=== PATIENT | female | born 1960 | race Caucasian/White ===

== ENCOUNTER → 2017-08-14 | Outpatient (CLI) | payer OTHER | LOC: BMCIMAGING 08:25 | PROVIDERS: ATTEND Internal Medicine | DX: Z12.31 Encounter for screening mammogram for malignant neoplasm of breast (principal); Z80.3 Family history of malignant neoplasm of breast | CPT/HCPCS: G0202 ==

== ENCOUNTER → 2018-08-02 | Outpatient (CLI) | payer OTHER | LOC: BMCIMAGING 15:20 | PROVIDERS: ATTEND Internal Medicine | DX: Z12.31 Encounter for screening mammogram for malignant neoplasm of breast (principal); Z80.3 Family history of malignant neoplasm of breast ==